=== PATIENT | female | born 1970 ===

== ENCOUNTER 2022-04-15 10:19 | Emergency (ER) | payer OTHER ==
[2022-04-15] MEDS ORDERED: Ondansetron PF 4 MG/2 ML Vial ONE (10:38)
[2022-04-15] MEDS ORDERED: Fentanyl 100 MCG/2 ML VIAL ONE (10:38)
[2022-04-15] MEDS ORDERED: HYDROcodone/Acetaminophen 10/325 mg Tablet ONE (13:37)
[2022-04-15] MEDS ORDERED: Iopamidol-370 76% 500 ML 1 ML ONE (15:49)
== END 2022-04-15 13:57 | disposition home or self-care (01) ==
LOC: ERS 10:19
DX: S20.312A Abrasion of left front wall of thorax, initial encounter (principal); S30.1XXA Contusion of abdominal wall, initial encounter; R19.00 Intra-abdominal and pelvic swelling, mass and lump, unspecified site; V89.2XXA Person injured in unspecified motor-vehicle accident, traffic, initial encounter
CPT/HCPCS: 71260; 74177; 96374; 96375; J2405; J3010; Q9967